=== PATIENT | male | born 1980 | race Caucasian/White ===

== ENCOUNTER 2021-10-04 11:50 | Emergency (ER) | payer OTHER ==
--- OUTSIDE RECORDS SUMMARY | 2021-10-04 11:52 | XMS REPORT | Continuity of Care Document ---
:1980 Author Organization [facility] t Address [address] [place] [address] Care Team Providers Name Role Phone Julia CANNON Primary Care Physician JULIA Attending Clinician Unavailable Doctor Unassigned, Name Attending Clinician Unavailable Julia CANNON Attending Clinician Payers Payer Name Policy Type Policy Number Effective Date Expiration Date S ource [facility] [id number] 2021 00:00:00 Problems Condition Condition Condition Status Onset Resolution Last Treating Co mments Source Name Details Category Date Date Treatment Clinician Date Attention Attention Disease Active 2014-09 Uni vers deficit deficit 0-02 ity of disorder disorder 00:00: [place] (ADD) (ADD) 00 Medical without without Branch hyperactiv hyperactiv ity ity Allergies, Adverse Reactions, Alerts Allergy Allergy Status Severity Reaction(s) Onset Inactive Treating Comm ents Source Name Type Date Date Clinician Penicill Propensi Active Hives 2014-09 Univer s ins ty to 0-02 ity of adverse 00:00: [place] reaction 00 Medical s Branch PENICILL Drug Active Med Hives 2014-09 Univers INS Class 0-02 ity of 00:00: [place] 00 Medical Branch Social History Social Habit Start Date Stop Date Quantity Comments Source Exposure to Not sure [facility] SARS-CoV-2 [place] [facility] (event) Branch Alcohol intake 2021-08-07 2021-08-07 Current drinker Unive rsity of 00:00:00 00:00:00 of alcohol [place] [facility] (finding) Branch Sex Ass[birth year] At [birth year] Universit y of 00:00:00 00:00:00 [facility] Smoking Status Start Date Stop Date Source Former smoker 2021-05-15 00:00:00 2021-05-15 00:00:00 [facility] Medications Ordered Filled Start Stop Current Ordering Indication Dosage Frequency Signature Comments Components Source Medication Medication Date Date Medication? Clinician (SIG) Name Name savi Yes [id number] 70mg Take 1 Univers amine 70 mg - capsule by it y of capsule 00:00: mouth [place] 00 every Medical morning. Branch zariat 2020-09 Yes [id number] 70mg Take 1 Univers amine 70 mg 10-08 capsule by it y of capsule 00:00: mouth [place] 00 every Medical morning. Branch zariat 2020-09- No [id number] 70mg Take 1 Univers amine 70 mg 10-08 capsule by i ty of capsule 00:00: 00:00 mouth [place] 00 :00 every Medical morning. Branch zariat 2020-09- No [id number] 70mg Take 1 Univers amine 70 mg 09-08 capsule by i ty of capsule 00:00: 00:00 mouth [place] 00 :00 every Medical morning. Branch albuterol Yes [id number] 2{puff} Inhale 2 Univers 90 9-13 Puffs ity of mcg/actuati 00:00: every 6 [place] as on inhaler 00 (six) Medical hours as Branch needed for Wheezing or Shortness of Breath. albuterol Yes [id number] 2{puff} Inhale 2 Univers 90 9-13 Puffs ity of mcg/actuati 00:00: every 6 [place] as on inhaler 00 (six) Medical hours as Branch needed for Wheezing or Shortness of Breath. tiZANidine Yes [id number] 4mg Take 1 Univers 4 mg tablet 8-30 tablet by ity of 00:00: mouth [place] 00 every 6 Medical (six) Branch hours as needed for Pain (scale 4-6). diclofenac Yes [id number] 75mg Take 1 Univers 75 mg EC 8-30 tablet by ity of tablet 00:00: mouth 2 [place] 00 (two) Medical times Branch daily with meals. tiZANidine Yes [id number] 4mg Take 1 Univers 4 mg tablet 8-30 tablet by ity of 00:00: mouth [place] 00 every 6 Medical (six) Branch hours as needed for Pain (scale 4-6). diclofenac Yes [id number] 75mg Take 1 Univers 75 mg EC 8-30 tablet by ity of tablet 00:00: mouth 2 00 (two) Medical times Branch daily with meals. Vital Signs Vital Name Observation Time Observation Value Comments Source Systolic blood 2021-08-07 13:05:00 115 mm[Hg] Univer sity [facility] Diastolic blood 2021-08-07 13:05:00 80 mm[facility]Hg[facility] rate 2021-08-07 13:05:00 71 /min [facility] Body weight 2021-08-07 13:05:00 120.657 kg [facility] BMI 2021-08-07 13:05:00 32.38 kg/m2 [facility] Procedures This patient has no known procedures. Encounters Start End Encounter Admission Attending Care Care Encounter Source Date/Time Date/Time Type Type Clinicians Facility Department ID 2021-11-05 2021-11-05 Outpatient Mega [facility] [id number] Univers 07:30:00 07:30:00 ASHLEY [id number] aayush [facility] 2021-11-05 2021-11-05 Outpatient Mega [facility] [id number] Univers 07:30:00 07:30:00 ASHLEY looney [facility] 2021-09-09 2021-09-09 Refill Doctor [facility] [id number] Univers 00:00:00 00:00:00 Unassigned, HEALTH [id number] ity of [place] [id number] [place] as [place] [id number] Ri vinayak [address] MEDICAL OFFICE BUILDING 2021-08-07 2021-08-07 Office Julia [facility] [id number] Univers 07:00:55 07:15:55 Visit [facility] [id number] it y of [place] [id number] [place] [id number] Ri vinayak [address] MEDICAL OFFICE BUILDING 2021-08-07 2021-08-07 Outpatient R JULIA [facility] [id number] Univers 07:00:00 07:00:00 ASHLEY looney [facility] Results This patient has no known results.
[2021-10-04] MEDS ORDERED: LIDOCAINE 1% 20 ML MDV ONE (12:18)
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
[2021-10-04] MEDS ORDERED: CEPHALEXIN 250 MG CAP ONE (12:58)
[2021-10-04] MEDS ORDERED: TETANUS & DIPHTHERIA TOX,ADULT 0.5 ML VIAL ONE (12:59)
[2021-10-04 13:20] VITALS: TEMP 98.2
[2021-10-04 13:22] VITALS: BP 130/93; O2SAT 99
--- NOTE | 2021-10-06 21:54 | RAD REPORT ---
EXAM DESCRIPTION: RAD - Lumbar Spine - Single View - 10/04/2021 12:20 pm CLINICAL HISTORY: Foreign body FINDINGS: A radiopaque foreign body measuring approximately 8.5 millimeters is present within the sk in and subcutaneous tissues of the posterior back at the L3-4 level
== END 2021-10-04 13:08 | disposition home or self-care (01) ==
LOC: ER 11:50
DX: S31.020A Laceration with foreign body of lower back and pelvis without penetration into retroperitoneum, initial encounter (principal); Z23 Encounter for immunization; F17.220 Nicotine dependence, chewing tobacco, uncomplicated
CPT/HCPCS: 72020; 90471; 90714; 99284